=== PATIENT | female | born 1990 | race Caucasian/White ===

== ENCOUNTER 2017-05-25 06:29 | Emergency (ER) | payer BC ==
[~2017-05-25] VITALS: Ht 157.5 cm; Wt 91.2 kg
[2017-05-25 07:05] LABS: BASO # 0.1 x10^3/uL (0.0-0.2); BASO % 1 % (0-3); EOS # 0.1 x10^3/uL (0.0-0.7); EOS % 1 % (0-3); HEMATOCRIT 40.6 % (36.0-47.0); HEMOGLOBIN 14.3 g/dL (12.0-15.5); LYMPH # 2.6 x10^3/uL (1.0-4.8); LYMPH % 24 % (24-48); MEAN CORPUSCULAR HEMOGLOBIN 30 pg (25-35); MEAN CORPUSCULAR HGB CONC 35 g/dL (31-37); MEAN CORPUSCULAR VOLUME 84 fL (79-100); MONO # 0.7 x10^3/uL (0.0-1.1); MONO % 7 % (0-9); NEUT # 7.3 x10^3uL (1.8-7.7); NEUT % 68 % (31-73); PLATELET COUNT 219 x10^3/uL (140-400); RED BLOOD COUNT 4.84 x10^6/uL (3.50-5.40); WHITE BLOOD COUNT 10.7 x10^3/uL (4.0-11.0)
[2017-05-25 07:19] LABS: CALCIUM 9.2 mg/dL (8.5-10.1); CREATININE 0.6 mg/dL (0.6-1.0); GFR 120.8; POTASSIUM 3.6 mmol/L (3.5-5.1); TOTAL BILIRUBIN 0.4 mg/dL (0.2-1.0)
--- NOTE | 2017-05-25 08:07 | PHYS DOC ---
Past History Past Medical History: Diabetes, Hypertension, Seizure Past Surgical History: Tonsillectomy Alcohol Use: None Drug Use: None Adult General Chief Complaint Chief Complaint: ABDOMINAL PAIN IN HPI HPI Patient is a 26-year-old 3 who is 7 weeks , she worked last night from 6:30 PM to 7 AM, presents with 1-1/2 hours of upper abdominal pain. Patient states it came on fairly suddenly and was "really bad", 10 out of 10. Patient tried to sit down and tried to take some Tums, either of those things helped. "It feels like when my appendix ruptured", she had appendectomy 2 years ago. She does still have her gallbladder. She has not had nausea, has just felt hot. Patient has not had an ultrasound yet with this . She had a positive test in her primary care doctor's office. Her OB is Dr. Melvin. Patient states she had preeclampsia and gestational diabetes with both of her previous pregnancies. Review of Systems Review of Systems Constitutional: She has felt hot this morning but no measured temperature HENT: Denies nasal congestion or sore throat [] Respiratory: Denies cough or shortness of breath [] Cardiovascular: Denies chest pain GI: As in history of present illness : Denies vaginal bleeding or spotting Musculoskeletal: Denies back pain or joint pain [] Integument: Denies rash or skin lesions [] Neurologic: Denies headache Current Medications Current Medications Current Medications Medications (Trade) Dose Ordered Sig/Lito Start Time Stop Time Status Last Admin Dose Admin Fentanyl Citrate (Fentanyl 2ml Vial) 50 mcg PRN Q15MIN PRN 05/25/17 06:45 05/26/17 06:44 05/25/17 07:20 50 MCG Allergies Allergies Allergies Coded Allergies Type Severity Reaction Last Updated Verified No Known Drug Allergies 11/06/15 No Physical Exam Physical Exam Constitutional: Well developed, well nourished, crying out in pain, appears to be in discomfort, alert, mentating normally, vital signs stable. HENT: Normocephalic, atraumatic, bilateral external ears normal, nose normal. [ ] Eyes: conjunctiva normal, no discharge. [] Neck: Normal range of motion, no stridor. [] Cardiovascular:Heart rate regular rhythm, no murmur [] Lungs & Thorax: Bilateral breath sounds clear to auscultation [] Abdomen: Obese, Bowel sounds normal, soft, nondistended, no masses, no pulsatile masses. Tenderness across the upper abdomen, worse on the left. No rebound or guarding. Negative Paredes's. No lower abdominal tenderness. Skin: Warm, dry, no erythema, no rash. [] Extremities: No tenderness, no cyanosis, no clubbing, ROM intact, no edema. [] Neurologic: Alert and oriented X 3, normal motor function, normal sensory function, no focal deficits noted. [] Current Patient Data Vital Signs Vital Signs Date Time Temp Pulse Resp B/P (MAP) Pulse Ox O2 Delivery O2 Flow Rate FiO2 05/25/17 06:30 98.8 104 97 Room Air Lab Results Laboratory Tests Test 05/25/17 06:34 White Blood Count 10.7 x10^3/uL (4.0-11.0) Red Blood Count 4.84 x10^6/uL (3.50-5.40) Hemoglobin 14.3 g/dL (12.0-15.5) Hematocrit 40.6 % (36.0-47.0) Mean Corpuscular Volume 84 fL (79-100) Mean Corpuscular Hemoglobin 30 pg (25-35) Mean Corpuscular Hemoglobin Concent 35 g/dL (31-37) Red Cell Distribution Width 14.0 % (11.5-14.5) Platelet Count 219 x10^3/uL (140-400) Neutrophils (%) (Auto) 68 % (31-73) Lymphocytes (%) (Auto) 24 % (24-48) Monocytes (%) (Auto) 7 % (0-9) Eosinophils (%) (Auto) 1 % (0-3) Basophils (%) (Auto) 1 % (0-3) Neutrophils # (Auto) 7.3 x10^3uL (1.8-7.7) Lymphocytes # (Auto) 2.6 x10^3/uL (1.0-4.8) Monocytes # (Auto) 0.7 x10^3/uL (0.0-1.1) Eosinophils # (Auto) 0.1 x10^3/uL (0.0-0.7) Basophils # (Auto) 0.1 x10^3/uL (0.0-0.2) Maternal Serum HCG Beta Subunit 35080 mIU/mL (0-6) H Sodium Level 137 mmol/L (136-145) Potassium Level 3.6 mmol/L (3.5-5.1) Chloride Level 101 mmol/L (98-107) Carbon Dioxide Level 25 mmol/L (21-32) Anion Gap 11 (6-14) Blood Urea Nitrogen 12 mg/dL (7-20) Creatinine 0.6 mg/dL (0.6-1.0) Estimated GFR (Cockcroft-Gault) 120.8 BUN/Creatinine Ratio 20 (6-20) Glucose Level 135 mg/dL (70-99) H Calcium Level 9.2 mg/dL (8.5-10.1) Total Bilirubin 0.4 mg/dL (0.2-1.0) Aspartate Amino Transferase (AST) 21 U/L (15-37) Alanine Aminotransferase (ALT) 90 U/L (14-59) H Alkaline Phosphatase 61 U/L (46-116) Total Protein 8.0 g/dL (6.4-8.2) Albumin 4.0 g/dL (3.4-5.0) Albumin/Globulin Ratio 1.0 (1.0-1.7) Lipase 141 U/L (73-393) EKG EKG [] Radiology/Procedures Radiology/Procedures Abdominal ultrasound read by the radiologist. Gallbladder is normal and no acute findings. Pelvic ultrasound read by the radiologist. Intrauterine , positive heart tones, 7 weeks 0 days, no acute findings.[] Course & Med Decision Making Course & Med Decision Making Pertinent Labs and Imaging studies reviewed. (See chart for details) 26 y/o female, 3 para 2, 7 weeks by dates, presents with acute onset 1-1 /2 hours ago of upper abdominal discomfort across the upper abdomen. She's never had this before. Her last bowel movement was 2 days ago which is not uncommon for her. We will give her some pain medication, check some labs and an ultrasound. She is agreeable to that plan. Patient was more comfortable after IV fentanyl, had her ultrasounds, family at the bedside. When I returned to discuss results, she was just having some more abdominal pain. Patient stated "when I lay on my right side, it hurts on my left side, mainly on the left side, it hurts on my right side." Patient has had no vomiting. Vital signs remained stable. I discussed with patient and family that her labs and ultrasounds are reassuringly normal. I suspect possible constipation/gas pain. We discussed the fact that I did rather try to treat the possible cause of her pain rather than giving her pain medication and she understands that. We will try treating her with a laxative, I urged her to return if worse or not improving as expected. Patient and family agree with the plan for discharge. See instructions for plan. [] Dragon Disclaimer Dragon Disclaimer This chart was dictated in whole or in part using Voice Recognition software in a busy, high-work load, and often noisy Emergency Department environment. It may contain unintended and wholly unrecognized errors or omissions. Departure Departure: Impression: Primary Impression: Abdominal pain affecting Additional Impressions: Abdominal gas pain First trimester Disposition: HOME, SELF-CARE Condition: STABLE Referrals: KIMMIE CONTE MD (PCP) Additional Instructions: As we discussed, ultrasound of your gallbladder is normal. Ultrasound of your baby looks healthy with your in the uterus where it belongs and positive heartbeat. Lab tests are all normal. We are not finding any serious cause of your pain. We are not able to determine exactly what is causing your pain, but have ruled out many of the serious causes. As we discussed, I'd like to try treating for constipation and "gas pain". When you get home, drink one half bottle of the magnesium citrate. If you have not had good "results" in the next 4-6 hours, drink the second half bottle. If worse, or not better after magnesium citrate, return to emergency. Problem Qualifiers BERNARDINO ENCINAS MD May 25, 2017 08:07
--- NOTE | 2017-05-25 09:13 | RAD ---
Limited abdomen ultrasound study of the right upper quadrant History: Upper abdominal pain that started today. Findings: The tail of the pancreas is obscured due to overlying bowel gas. The rest of the pancreas is homogeneous without focal enlargement. The gallbladder is normal without gallstones. The extra hepatic bile duct measures 3.8 mm in caliber which is normal. The liver measures 17 cm in length which is normal. There is a 1.2 cm calcification within the left lobe of the liver. No focal hepatic mass is seen otherwise. The length of the right kidney is 11.2 cm. No hydronephrosis or renal mass or perinephric fluid collection is seen on the right side. IMPRESSION: Normal sonographic evaluation of the gallbladder.
--- NOTE | 2017-05-25 09:13 | RAD ---
First trimester ultrasound less than 14 weeks: Clinical indications: . Abdominal pain that started today. Findings: Transabdominal study: The uterus is anteverted in position. There is a gestational sac within the fundal portion of the uterus. This is not well visualized. Therefore, transvaginal sonography will be performed. The longitudinal and AP and transverse dimensions of the uterus are 11.3 cm and 4.4 cm and 6.8 cm respectively. The left ovary measures 2.3 cm and 3.0 cm and 2.8 cm in size and is normal. The right ovary measures 2.0 cm and 2.6 cm and 2.6 cm in size and is normal. No adnexal mass or free fluid is seen. Transvaginal study: Number of fetuses: Single. Average crown-rump length: 0.97 cm which corresponds to an approximate gestational age of 7 weeks and 0 days EDC is January 11, 2018. Sac shape and amniotic fluid volume: Normal. heart rate: 141 beats per minute Placenta location: Indeterminate due to the early stage of gestation. Cervical length: Greater than 3.0 cm. Extrachorionic hemorrhage: None. Uterus: No uterine fibroids are seen. Maternal ovaries: Right ovary: 2.2 cm x 2.4 cm x 3.1 cm. Normal. Color-flow Doppler: Present Left ovary: 2.9 cm x 2.4 cm x 3.0 cm. Normal. Color-flow Doppler: Present. Adnexa: no adnexal masses are seen. Free fluid: Small amount of physiologic free fluid is seen within the cul-de-sac. Impression: Single intrauterine gestation with approximate gestational age of 7 weeks and 0 days with an EDC of January 11, 2018. heart rate is 141 beats per minute.
[2017-05-25 09:20] VITALS: BP 126/87
[2017-05-25] MEDS ORDERED: MAGNESIUM CITRATE 296 ML SOLUTION. PO ONE (09:45)
== END 2017-05-25 09:35 | disposition home or self-care (01) ==
LOC: ER 06:29
DX: O26.891 Other specified pregnancy related conditions, first trimester (principal); R14.1 Gas pain; R10.11 Right upper quadrant pain; E11.9 Type 2 diabetes mellitus without complications; I10 Essential (primary) hypertension
CPT/HCPCS: 36415; 76705; 76801; 76817; 80053; 83690; 84702; 85025; 96374; 96376; 99285; J3010

== ENCOUNTER 2017-07-20 21:53 | Emergency (ER) | payer OTHER, BC ==
[~2017-07-20] VITALS: Ht 157.5 cm; Wt 93.9 kg
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
[2017-07-20 23:14] VITALS: BP 154/95
== END 2017-07-20 23:26 | disposition home or self-care (01) ==
LOC: ER 21:53
DX: O9A.212 Injury, poisoning and certain other consequences of external causes complicating pregnancy, second trimester (principal); O16.2 Unspecified maternal hypertension, second trimester; O24.912 Unspecified diabetes mellitus in pregnancy, second trimester; Z3A.15 15 weeks gestation of pregnancy; V89.2XXA Person injured in unspecified motor-vehicle accident, traffic, initial encounter; Y93.89 Activity, other specified; Y99.8 Other external cause status; Y92.488 Other paved roadways as the place of occurrence of the external cause
CPT/HCPCS: 99281

== ENCOUNTER → 2019-01-23 | Outpatient (CLI) | payer BC ==
--- NOTE | 2019-01-23 16:30 | RAD ---
Left neck ultrasound, 01/23/2019: HISTORY: Enlarged lymph nodes The area of clinical concern in the left lateral neck was carefully scanned. Several small lymph nodes are seen. They demonstrate a normal echogenic hilum. The largest of these nodes measures 16 x 8 mm and is considered to be of borderline size. The other 3 measured nodes are elongated and measure only 4-5 mm in short axis dimension. These are considered to be within normal limits in size. No other neck mass or unusual fluid collection is seen. IMPRESSION: Single borderline enlarged left cervical lymph node as described above. Clinical and possibly sonographic follow-up is suggested. Electronically signed by: Eduar Valenzuela MD (01/23/2019 4:27 PM) [facility]
== END | disposition home or self-care (01) ==
LOC: US 12:38
PROVIDERS: ATTEND Family Medicine
DX: R59.0 Localized enlarged lymph nodes (principal)
CPT/HCPCS: 76536

== ENCOUNTER → 2019-08-26 | Outpatient (CLI) | payer BC ==
--- NOTE | 2019-08-26 17:45 | RAD ---
INDICATION: Dizziness COMPARISON: None. TECHNIQUE: Axial CT images obtained through the head without intravenous contrast. One or more of the following individualized dose reduction techniques were utilized for this examination: 1. Automated exposure control; 2. Adjustment of the mA and/or kV according to patient size; 3. Use of iterative reconstruction technique. FINDINGS: No intracranial hemorrhage. No midline shift. Basal cisterns patent. Ventricles and sulci are unremarkable. No acute osseous abnormality. Orbits and paranasal sinuses unremarkable. IMPRESSION: * No acute intracranial hemorrhage. Electronically signed by: Omari Gavin MD (08/26/2019 5:43 PM) [facility] [place]
== END ==
LOC: CT 17:24
PROVIDERS: ATTEND Family Medicine
DX: H81.4 Vertigo of central origin (principal)
CPT/HCPCS: 70450

== ENCOUNTER → 2020-06-09 | Outpatient (CLI) | payer BC ==
--- NOTE | 2020-06-09 17:05 | RAD ---
Examination: Limited left breast ultrasound. INDICATION: 29-year-old woman with a tender periareolar left breast lump. COMPARISON: None. TECHNIQUE: Targeted ultrasound of the periareolar left breast in the area of clinical concern was performed. FINDINGS: At the 6:00 position of the left nipple and areolar complex, focal skin thickening adjacent to the nipple is identified with marked vascularity, measuring up to 8 mm in diameter. No duct ectasia or subareolar breast mass. IMPRESSION: Inflamed 8 mm skin lesion in the left areola, favored to be an epidermal inclusion cyst. No sonographic evidence of malignancy. Recommend clinical management which may include biopsy if there are any clinically suspicious findings. In the absence of a clinically suspicious finding, age-appropriate routine mammographic screening starting at age 40 in average risk women is recommended. BI-RADS Category 2 Benign findings Electronically signed by: Bina Rosales MD (06/09/2020 5:02 PM) [id number]
== END ==
LOC: US 12:48
PROVIDERS: ATTEND Family Medicine
DX: N63.42 Unspecified lump in left breast, subareolar (principal); N60.02 Solitary cyst of left breast
CPT/HCPCS: 76641

== ENCOUNTER 2021-02-04 21:29 | Emergency (ER) | payer BC ==
[~2021-02-04] VITALS: Ht 157.5 cm; Wt 97.3 kg
[2021-02-04 21:30] VITALS: BP 129/68
[2021-02-04] MEDS ORDERED: FAMOTIDINE 20 MG/2 ML VIAL IVP ONE (22:30)
[2021-02-04] MEDS ORDERED: IV RINGERS SOLUTION,LACTATED 1,000 ML IV SCH (22:30)
[2021-02-04] MEDS ORDERED: ONDANSETRON PF 4 MG/2 ML VIAL. IVP ONE (22:30)
--- NOTE | 2021-02-04 23:55 | RAD ---
EXAM: US OB Limited CLINICAL HISTORY: Reason: cramps , vaginal bleeding 15 weeks gravid. / Spl. Instructions: / History: . COMPARISON: None available. TECHNIQUE: Limited transabdominal ultrasound of the uterus was performed. FINDINGS: NUMBER: Single POSITION: breech PLACENTA: Location: Posteriorly without apparent placenta previa. Placentation: Normal. Cord insertion: Normal. Cord type: Not evaluated. ANATOMY: HEART RATE: 155 COMMENTS: None Current measurements are: BPD - 3.26 cm = 16 weeks 1 day HC -12.5 cm = 16 weeks 2 days AC - 19.5 cm = 15 weeks 4 days FL - 2.0 cm = 16 weeks 0 days MATERNAL ANATOMY CERVIX Length (cm): 4.6 cm UTERUS: No abnormalities seen. Placenta appears normal without appreciable hemorrhage. OVARIES/ADNEXAE: No masses seen. CUL-DE-SAC: No fluid. HISTORICAL DATES Last menstrual period: 10/19/2020. CALCULATED DATES EGA (LMP): MANUEL (LMP): 07/26/2021. EGA (US): 16 weeks 0 days MANUEL (US): 07/22/2021. IMPRESSION: Normal-appearing living intrauterine fetus with estimated age by also measurements of 16 weeks 0 days . No cause for bleeding is seen. Electronically signed by: Reilly Fonseca Jr., MD (02/04/2021 11:53 PM) [facility]
[2021-02-05 00:12] LABS: BASO % 0 % (0-3); EOS # 0.2 x10^3/uL (0.0-0.7); EOS % 2 % (0-3); HEMATOCRIT 35.4 % (36.0-47.0); HEMOGLOBIN 12.3 g/dL (12.0-15.5); LYMPH # 2.2 x10^3/uL (1.0-4.8); LYMPH % 24 % (24-48); MEAN CORPUSCULAR HEMOGLOBIN 29 pg (25-35); MEAN CORPUSCULAR HGB CONC 35 g/dL (31-37); MEAN CORPUSCULAR VOLUME 83 fL (79-100); MONO # 0.6 x10^3/uL (0.0-1.1); MONO % 7 % (0-9); NEUT # 6.2 x10^3uL (1.8-7.7); NEUT % 67 % (31-73); PLATELET COUNT 194 x10^3/uL (140-400); RED BLOOD COUNT 4.28 x10^6/uL (3.50-5.40); WHITE BLOOD COUNT 9.3 x10^3/uL (4.0-11.0)
[2021-02-05 00:23] LABS: BACTERIA,URINE 0 /HPF (0-FEW); BILIRUBIN,URINE NEG (NEG); CLARITY,URINE CLEAR; COLOR,URINE YELLOW; GLUCOSE,URINE NEG (NEG); NITRITE,URINE NEG (NEG); WBC,URINE OCC /HPF (0-4)
[2021-02-05 00:24] LABS: SQUAMOUS EPITHELIAL CELL,UR OCC /LPF
[2021-02-05 00:28] LABS: BARBITURATES NEG (NEG); BENZODIAZEPINES NEG (NEG); CANNABINOIDS NEG (NEG); COCAINE NEG (NEG); METHADONE NEG (NEG); OPIATES NEG (NEG); PHENCYCLIDINE NEG (NEG)
[2021-02-05 00:31] LABS: AMPHETAMINE/METHAMPHETAMINE NEG (NEG)
[2021-02-05 00:34] LABS: ALBUMIN 3.3 g/dL (3.4-5.0); CALCIUM 9.5 mg/dL (8.5-10.1); CREATININE 0.5 mg/dL (0.6-1.0); DIRECT BILIRUBIN 0.1 mg/dL (0.0-0.2); GFR 144.9; POTASSIUM 3.5 mmol/L (3.5-5.1); TOTAL BILIRUBIN 0.3 mg/dL (0.2-1.0); TOTAL PROTEIN 6.7 g/dL (6.4-8.2)
--- NOTE | 2021-02-05 00:50 | PHYS DOC ---
Past History Past Medical History: No Pertinent History, Diabetes, Hypertension, Seizure Past Surgical History: Tonsillectomy Alcohol Use: None Drug Use: None General Adult EDM: Chief Complaint: VAGINAL BLEEDING HPI: HPI: ".. I having bleeding.., I am about 15 weeks .. " This is my fourth.." Patient is a 30 year old female who presents with above hx and complaints of bleeding at 15 weeks. Pt. fourth . Patient plans to deliver at [facility]. No history of trauma. No specific ill contacts. Patient states bleeding is as much as a menstruation.. Has had chlamydia which was treated. To lifetime sex partners. Gravid 4 term 3. No history of recent travel outside [facility] area. Is on vitamins. Follows with [facility]. Review of Systems: Review of Systems: Constitutional: Denies fever or chills Eyes: Denies change in visual acuity HENT: Denies nasal congestion or sore throat Respiratory: Denies cough or shortness of breath Cardiovascular: Denies chest pain or edema GI: Denies abdominal pain, nausea, vomiting, bloody stools or diarrhea. Complains of vaginal bleeding : Denies dysuria Musculoskeletal: Denies back pain or joint pain Integument: Denies rash Neurologic: Denies headache, focal weakness or sensory changes Endocrine: Denies polyuria or polydipsia Lymphatic: Denies swollen glands Psychiatric: Denies depression or anxiety Family History: Family History: Noncontributory to presentation Current Medications: Current Meds: Current Medications Medications (Trade) Dose Ordered Sig/Lito Start Time Stop Time Status Last Admin Dose Admin Famotidine (Pepcid Vial) 20 mg 1X ONCE 02/04/21 22:30 02/04/21 22:31 DC 02/04/21 23:37 20 MG Lactated Ringer's 1,000 ml @ 1,000 mls/hr Q1H 02/04/21 22:30 02/04/21 23:29 DC 02/04/21 23:42 1,000 MLS/HR Ondansetron HCl (Zofran) 4 mg 1X ONCE 02/04/21 22:30 02/04/21 22:31 DC 02/04/21 23:36 4 MG Allergies: Allergies: Allergies Coded Allergies Type Severity Reaction Last Updated Verified No Known Drug Allergies 02/05/21 No Physical Exam: PE: Constitutional: Well developed, well nourished, no acute distress, non-toxic appearance. [] HENT: Normocephalic, atraumatic, bilateral external ears normal, oropharynx moist, no oral exudates, nose normal. [] Eyes: PERRLA, EOMI, conjunctiva normal, no discharge. [] Neck: Normal range of motion, no tenderness, supple, no stridor. [] Cardiovascular:Heart rate regular rhythm, no murmur [] Lungs & Thorax: Bilateral breath sounds clear to auscultation [] Abdomen: Bowel sounds normal, soft, no tenderness, no masses, no pulsatile masses. [] Appears with bleeding from os. No cervical motion tenderness.. Gravid. Rectal no gross bleeding. Hard stool. No rebound. Skin: Warm, dry, no erythema, no rash. [] Back: No tenderness, no CVA tenderness. [] Extremities: No tenderness, no cyanosis, no clubbing, ROM intact, no edema. [] No psoas sign. Neurologic: Alert and oriented X 3, normal motor function, normal sensory function, no focal deficits noted. [] Psychologic: Affect anxious, judgement normal, mood normal. [] Current Patient Data: Labs: Laboratory Tests Test 02/04/21 23:45 White Blood Count 9.3 x10^3/uL (4.0-11.0) Red Blood Count 4.28 x10^6/uL (3.50-5.40) Hemoglobin 12.3 g/dL (12.0-15.5) Hematocrit 35.4 % (36.0-47.0) L Mean Corpuscular Volume 83 fL (79-100) Mean Corpuscular Hemoglobin 29 pg (25-35) Mean Corpuscular Hemoglobin Concent 35 g/dL (31-37) Red Cell Distribution Width 14.0 % (11.5-14.5) Platelet Count 194 x10^3/uL (140-400) Neutrophils (%) (Auto) 67 % (31-73) Lymphocytes (%) (Auto) 24 % (24-48) Monocytes (%) (Auto) 7 % (0-9) Eosinophils (%) (Auto) 2 % (0-3) Basophils (%) (Auto) 0 % (0-3) Neutrophils # (Auto) 6.2 x10^3uL (1.8-7.7) Lymphocytes # (Auto) 2.2 x10^3/uL (1.0-4.8) Monocytes # (Auto) 0.6 x10^3/uL (0.0-1.1) Eosinophils # (Auto) 0.2 x10^3/uL (0.0-0.7) Basophils # (Auto) 0.0 x10^3/uL (0.0-0.2) Urine Collection Type Void Urine Color Yellow Urine Clarity Clear Urine pH 6.5 Urine Specific Celeste 1.025 Urine Protein Neg (NEG-TRACE) Urine Glucose (UA) Neg mg/dL (NEG) Urine Ketones (Stick) Neg mg/dL (NEG) Urine Blood Large (NEG) Urine Nitrite Neg (NEG) Urine Bilirubin Neg (NEG) Urine Urobilinogen Dipstick 1.0 mg/dL (0.2 mg/dL) Urine Leukocyte Esterase Neg (NEG) Urine RBC 3-5 /HPF (0-2) Urine WBC Occ /HPF (0-4) Urine Squamous Epithelial Cells Occ /LPF Urine Bacteria 0 /HPF (0-FEW) Sodium Level 141 mmol/L (136-145) Potassium Level 3.5 mmol/L (3.5-5.1) Chloride Level 106 mmol/L (98-107) Carbon Dioxide Level 24 mmol/L (21-32) Anion Gap 11 (6-14) Blood Urea Nitrogen 9 mg/dL (7-20) Creatinine 0.5 mg/dL (0.6-1.0) L Estimated GFR (Cockcroft-Gault) 144.9 Glucose Level 129 mg/dL (70-99) H Calcium Level 9.5 mg/dL (8.5-10.1) Total Bilirubin 0.3 mg/dL (0.2-1.0) Direct Bilirubin 0.1 mg/dL (0.0-0.2) Aspartate Amino Transferase (AST) 26 U/L (15-37) Alanine Aminotransferase (ALT) 74 U/L (14-59) H Alkaline Phosphatase 46 U/L (46-116) Total Protein 6.7 g/dL (6.4-8.2) Albumin 3.3 g/dL (3.4-5.0) L Lipase 100 U/L (73-393) Urine Opiates Screen Neg (NEG) Urine Methadone Screen Neg (NEG) Urine Barbiturates Neg (NEG) Urine Phencyclidine Screen Neg (NEG) Urine Amphetamine/Methamphetamine Neg (NEG) Urine Benzodiazepines Screen Neg (NEG) Urine Cocaine Screen Neg (NEG) Urine Cannabinoids Screen Neg (NEG) Urine Ethyl Alcohol Neg (NEG) Microbiology 02/04/21 Wet Prep - Final, Complete Vital Signs: Vital Signs Date Time Temp Pulse Resp B/P (MAP) Pulse Ox O2 Delivery O2 Flow Rate FiO2 02/04/21 21:30 98.6 109 20 129/68 (88) 97 Room Air EKG: EKG: [] Radiology/Procedures: Radiology/Procedures: [][address] [address] IMAGING REPORT Signed PATIENT: JULIA AKERS ACCOUNT: [id number] : 1990 LOCATION: ER AGE: 30 SEX: F EXAM STATUS: REG ER ORD. PHYSICIAN: GERARD PATRICK MD REASON: cramps , vaginal bleeding 15 weeks gravid. PROCEDURE: OB LIMITED EXAM: US OB Limited CLINICAL HISTORY: Reason: cramps , vaginal bleeding 15 weeks gravid. / Spl. Instructions: / History: . COMPARISON: None available. TECHNIQUE: Limited transabdominal ultrasound of the uterus was performed. FINDINGS: NUMBER: Single POSITION: breech PLACENTA: Location: Posteriorly without apparent placenta previa. Placentation: Normal. Cord insertion: Normal. Cord type: Not evaluated. ANATOMY: HEART RATE: 155 COMMENTS: None Current measurements are: BPD - 3.26 cm = 16 weeks 1 day HC -12.5 cm = 16 weeks 2 days AC - 19.5 cm = 15 weeks 4 days FL - 2.0 cm = 16 weeks 0 days MATERNAL ANATOMY CERVIX Length (cm): 4.6 cm UTERUS: No abnormalities seen. Placenta appears normal without appreciable hemorrhage. OVARIES/ADNEXAE: No masses seen. CUL-DE-SAC: No fluid. HISTORICAL DATES Last menstrual period: 10/19/2020. CALCULATED DATES EGA (LMP): MANUEL (LMP): 07/26/2021. EGA (US): 16 weeks 0 days MANUEL (US): 07/22/2021. IMPRESSION: Normal-appearing living intrauterine fetus with estimated age by also measurements of 16 weeks 0 days. No cause for bleeding is seen. Electronically signed by: Maritza Fonseca Jr., MD (02/04/2021 11:53 PM) [facility] DICTATED AND SIGNED BY: MARITZA FONSECA Jr, MD DATE: 02/04/21 5126 CC: KIMMIE CONTE MD; GERARD PATRICK MD ~MTH0 0 Heart Score: C/O Chest Pain: N/A Risk Factors: Risk Factors: DM, Current or recent (<one month) smoker, HTN, HLP, family hi story of CAD, obesity. Risk Scores: Score 0 - 3: 2.5% MACE over next 6 weeks - Discharge Home Score 4 - 6: 20.3% MACE over next 6 weeks - Admit for Clinical Observation Score 7 - 10: 72.7% MACE over next 6 weeks - Early Invasive Strategies Course & Med Decision Making: Course & Med Decision Making Pertinent Labs and Imaging studies reviewed. (See chart for details) Continue pad counts. Followup cultures. Keep followup with Obgyn. Take disc with you on follow up. Continue vitamins. Return if any concerns. Must follow-up. Impression: 1. Threatened 2. Intrauterine approximately 16 weeks 0 days by ultrasound 3. Hgb= 12.3 this visit 4. Blood Type Pt. A + Positive 5. Breech position with FHR 155 6. G 4, T3 [] Dragon Disclaimer: Dragon Disclaimer: This electronic medical record was generated, in whole or in part, using a voice recognition dictation system. Departure Departure: Referrals: KIMMIE CONTE MD (PCP) Dragon Disclaimer This chart was dictated in whole or in part using Voice Recognition software in a busy, high-work load, and often noisy Emergency Department environment. It may contain unintended and wholly unrecognized errors or omissions. Dragon Disclaimer This chart was dictated in whole or in part using Voice Recognition software in a busy, high-work load, and often noisy Emergency Department environment. It may contain unintended and wholly unrecognized errors or omissions. GERARD PATRICK MD Feb 05, 2021 00:50
[2021-02-06 13:24] LABS: CHLAMYDIA PROBE Negative (Negative)
== END 2021-02-05 01:35 | disposition home or self-care (01) ==
LOC: ER 21:29
DX: O20.0 Threatened abortion (principal); Z3A.16 16 weeks gestation of pregnancy
CPT/HCPCS: 36415; 76815; 80048; 80076; 80307; 81001; 83690; 84702; 85025; 86900; 86901; 87491; 87591; 96361; 96374; 96375; 99284; J2405; J3490; J7120; Q0111

== ENCOUNTER 2021-11-23 18:13 | Emergency (ER) | payer BC ==
[~2021-11-23] VITALS: Ht 309.9 cm; Wt 97.3 kg
[2021-11-23] MEDS ORDERED: ONDANSETRON PF 4 MG/2 ML VIAL. IVP ONE (18:30)
[2021-11-23] MEDS ORDERED: IV NORMAL SALINE 1,000ML 1,000 ML IV ONE (18:30)
[2021-11-23 18:34] VITALS: BP 156/76
[2021-11-23 18:56] LABS: BASO # 0.1 x10^3/uL (0.0-0.2); BASO % 0 % (0-3); EOS # 0.1 x10^3/uL (0.0-0.7); EOS % 1 % (0-3); HEMATOCRIT 41.9 % (36.0-47.0); HEMOGLOBIN 14.2 g/dL (12.0-15.5); LYMPH # 1.2 x10^3/uL (1.0-4.8); LYMPH % 10 % (24-48); MEAN CORPUSCULAR HEMOGLOBIN 28 pg (25-35); MEAN CORPUSCULAR HGB CONC 34 g/dL (31-37); MEAN CORPUSCULAR VOLUME 82 fL (79-100); MONO # 0.6 x10^3/uL (0.0-1.1); MONO % 5 % (0-9); NEUT % 83 % (31-73); PLATELET COUNT 238 x10^3/uL (140-400); RED CELL DISTRIBUTION WIDTH 14.6 % (11.5-14.5)
--- NOTE | 2021-11-23 18:58 | PHYS DOC ---
Past History Past Medical History: No Pertinent History, Diabetes, Hypertension, Seizure, Other Additional Past Medical Histor: pre-eclampsia with 1st preg; gest diab with 1st two preg. Past Surgical History: Appendectomy, Tonsillectomy Alcohol Use: None Drug Use: None General Adult EDM: Chief Complaint: NAUSEA/VOMITING HPI: HPI: 30-year-old female who is 10 weeks presents with nausea and vomiting. She started to feel nauseous yesterday today she continued to have nausea but had 3 episodes of vomiting. She decided she should come in for evaluation. She had difficulty keeping down any liquids or solids. She denies fever, chills, diarrhea. No significant abdominal pain. Denies vaginal bleeding or discharge. Review of Systems: Review of Systems: Constitutional: Denies fever or chills Eyes: Denies change in visual acuity HENT: Denies nasal congestion or sore throat Respiratory: Denies cough or shortness of breath Cardiovascular: Denies chest pain or edema GI: nausea, vomiting. Denies abdominal pain, bloody stools or diarrhea : Denies dysuria Musculoskeletal: Denies back pain or joint pain Integument: Denies rash Neurologic: Denies headache, focal weakness or sensory changes Endocrine: Denies polyuria or polydipsia Lymphatic: Denies swollen glands Psychiatric: Denies depression or anxiety Current Medications: Current Meds: Current Medications Medications (Trade) Dose Ordered Sig/Lito Start Time Stop Time Status Last Admin Dose Admin Ondansetron HCl (Zofran) 4 mg 1X ONCE 11/23/21 18:30 11/23/21 18:40 DC 11/23/21 18:30 4 MG Sodium Chloride 1,000 ml @ 1,000 mls/hr 1X ONCE 11/23/21 18:30 11/23/21 19:29 11/23/21 18:30 1,000 MLS/HR Allergies: Allergies: Allergies Coded Allergies Type Severity Reaction Last Updated Verified No Known Drug Allergies 02/05/21 No Physical Exam: PE: Constitutional: Well developed, well nourished, no acute distress, non-toxic appearance. [] HENT: Normocephalic, atraumatic, bilateral external ears normal, oropharynx moist, no oral exudates, nose normal. [] Eyes: PERRLA, EOMI, conjunctiva normal, no discharge. [] Neck: Normal range of motion, no tenderness, supple, no stridor. [] Cardiovascular:Heart rate regular rhythm, no murmur [] Lungs & Thorax: Bilateral breath sounds clear to auscultation [] Abdomen: Bowel sounds normal, soft, no tenderness, no masses, no pulsatile masses. [] Skin: Warm, dry, no erythema, no rash. [] Back: No tenderness, no CVA tenderness. [] Extremities: No tenderness, no cyanosis, no clubbing, ROM intact, no edema. [] Neurologic: Alert and oriented X 3, normal motor function, normal sensory function, no focal deficits noted. [] Psychologic: Affect normal, judgement normal, mood normal. [] Current Patient Data: Vital Signs: Vital Signs Date Time Temp Pulse Resp B/P (MAP) Pulse Ox O2 Delivery O2 Flow Rate FiO2 11/23/21 18:34 98.0 156/76 (102) EKG: EKG: [] Radiology/Procedures: Radiology/Procedures: [] Heart Score: C/O Chest Pain: N/A Risk Factors: Risk Factors: DM, Current or recent (<one month) smoker, HTN, HLP, family history of CAD, obesity. Risk Scores: Score 0 - 3: 2.5% MACE over next 6 weeks - Discharge Home Score 4 - 6: 20.3% MACE over next 6 weeks - Admit for Clinical Observation Score 7 - 10: 72.7% MACE over next 6 weeks - Early Invasive Strategies Course & Med Decision Making: Course & Med Decision Making Pertinent Labs and Imaging studies reviewed. (See chart for details) We will give the patient a liter normal saline and 4 mg of Zofran. Labs are pending. Patient's labs are unremarkable except for slightly elevated white count. The patient was able to pass p.o. challenge. We will discharge the patient with Zofran and advised that she follow-up with her OB to further discuss nausea. She is stable for discharge at this time. [] Dragon Disclaimer: Alex Disclaimer: This electronic medical record was generated, in whole or in part, using a voice recognition dictation system. Departure Departure: Impression: Primary Impression: Vomiting during Disposition: HOME / SELF CARE / HOMELESS Condition: IMPROVED Referrals: KIMMIE CONTE MD (PCP) Patient Instructions: Nausea and Vomiting, [id number] Scripts Ondansetron (ONDANSETRON ODT) 4 Mg Tab.rapdis 1 TAB PO PRN Q6-8HRS PRN for VOMITING, #16 TAB Prov: GISELLE CARLSON DO 11/23/21 GISELLE CARLSON DO Nov 23, 2021 18:58
[2021-11-23 19:00] LABS: BACTERIA,URINE 0 /HPF (0-FEW); CLARITY,URINE CLEAR; COLOR,URINE YELLOW; GLUCOSE,URINE 100 mg/dL (NEG); NITRITE,URINE NEG (NEG); SQUAMOUS EPITHELIAL CELL,UR FEW /LPF; WBC,URINE 0 /HPF (0-4)
[2021-11-23 19:02] LABS: RBC,URINE 0 /HPF (0-2)
[2021-11-23 19:03] LABS: CREATININE 0.5 mg/dL (0.6-1.0); GFR 144.9
[2021-11-23 19:08] LABS: ALBUMIN 3.5 g/dL (3.4-5.0); TOTAL BILIRUBIN 0.5 mg/dL (0.2-1.0); TOTAL PROTEIN 7.1 g/dL (6.4-8.2)
[2021-11-23] MEDS ORDERED: ONDA4TAB12 PO (20:15)
== END 2021-11-23 20:26 | disposition home or self-care (01) ==
LOC: ER 18:13
DX: O21.9 Vomiting of pregnancy, unspecified (principal); O24.911 Unspecified diabetes mellitus in pregnancy, first trimester; O16.1 Unspecified maternal hypertension, first trimester; Z3A.10 10 weeks gestation of pregnancy
CPT/HCPCS: 36415; 80053; 81001; 85025; 96361; 96374; 99283; J2405; J7030